=== PATIENT | female | born 1945 | race Caucasian/White ===

== ENCOUNTER 2017-02-19 09:56 | Outpatient (CLI) | payer MEDICARE, BC | END 2017-02-19 09:57 | disposition home or self-care (01) | LOC: BICRAD 09:56 | PROVIDERS: ATTEND Internal Medicine | DX: M17.0 Bilateral primary osteoarthritis of knee (principal); M19.011 Primary osteoarthritis, right shoulder; M75.91 Shoulder lesion, unspecified, right shoulder; R91.8 Other nonspecific abnormal finding of lung field; Z98.890 Other specified postprocedural states ==

== ENCOUNTER 2017-08-27 08:13 | Outpatient (CLI) | payer MEDICARE, BC | END 2017-08-27 08:14 | disposition home or self-care (01) | LOC: BICMRI 08:13 | PROVIDERS: ATTEND Anesthesiology Pain Medicine | DX: M48.062 Spinal stenosis, lumbar region with neurogenic claudication (principal); G62.9 Polyneuropathy, unspecified | CPT/HCPCS: 72148 ==

== ENCOUNTER 2017-09-10 10:14 | Outpatient (CLI) | payer MEDICARE, BC | END 2017-09-10 10:15 | disposition home or self-care (01) | LOC: BICMRI 10:14 | PROVIDERS: ATTEND Anesthesiology Pain Medicine | DX: M47.22 Other spondylosis with radiculopathy, cervical region (principal); M99.82 Other biomechanical lesions of thoracic region | CPT/HCPCS: 72141 ==

== ENCOUNTER 2018-03-10 09:43 | Outpatient (CLI) | payer MEDICARE, BC ==
--- NOTE | 2018-03-10 14:32 | MRI ---
MRI THORACIC SPINE WITH AND WITHOUT CONTRAST: HISTORY: Schwannoma. Pain. COMPARISON: None. TECHNIQUE: MRI of the thoracic spine is performed with and without intravenous Gadolinium administration. Multi sequence, multiplanar imaging is performed. FINDINGS: There is kyphosis of the thoracic spine. Nevertheless, thoracic spine vertebral body height is maint ained. There is no evidence of a thoracic spine fracture. No significant STIR hyperintensity to sug gest vertebral body edema or ligamentous injury. On the postcontrast images, there is no abnormal en hancement with regards to the vertebral bodies. Mediastinal structures, lung parenchyma, and visualized solid organs have an appropriate signal inten sity. The thoracic cord has a normal size and signal intensity. Conus medullaris terminates beyond the L1 level. There is 4 mm of anterolisthesis of T2 upon T2, 3 mm anterolisthesis of T3 upon T4. There is mild mass effect upon the ventral thecal sac and cord at T3-T4 and T4-T5. No high-grade joshua tral canal stenosis. Mild narrowing of the thecal sac at T5-T6. There are T2 hyperintense lesions involving the left and right neural foramen at T1-T2, left neural f oramen at T2-T3, the right neural foramen at T10-T11, left neural foramen at T11-T12. These T2 hyper intense lesions do not have any associated enhancement. 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 The largest lesion is in the left neural foramen at T2-T3 and eugenia ures 2.3 x 2.7 cm. IMPRESSION: 1. Degenerative change of the thoracic spine as above. No high grade central canal stenosis, or hig h grade foraminal narrowing. 2. Multiple intrinsic T2 hyperintense lesions without associated enhancement. 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 POS: [facility]
[2018-03-10] MEDS ORDERED: Gadobenate Dimeglumine 529 MG/1 ML (20ML VIAL) ONE (16:59)
== END 2018-03-10 09:44 | disposition home or self-care (01) ==
LOC: BICMRI 09:43
PROVIDERS: ATTEND Nurse Practitioner Family
DX: D33.4 Benign neoplasm of spinal cord (principal); M47.814 Spondylosis without myelopathy or radiculopathy, thoracic region; M89.9 Disorder of bone, unspecified
CPT/HCPCS: 72157; A9579

== ENCOUNTER 2021-04-20 09:40 | Outpatient (CLI) | payer MEDICARE, BC | END 2021-04-20 09:41 | disposition home or self-care (01) | LOC: BICMAMMO 09:40 | PROVIDERS: ATTEND Internal Medicine | DX: Z13.820 Encounter for screening for osteoporosis (principal); Z78.0 Asymptomatic menopausal state; M81.0 Age-related osteoporosis without current pathological fracture; M85.851 Other specified disorders of bone density and structure, right thigh; M85.852 Other specified disorders of bone density and structure, left thigh | CPT/HCPCS: 77080 ==